=== PATIENT | female | born 1945 | race Caucasian/White ===

== ENCOUNTER → 2016-09-12 | Outpatient (CLI) | payer MEDICARE, BC ==
--- NOTE | 2016-09-13 19:09 | XA ---
Exam Date: 09/12/16 Patient's Age: 71 HEIGHT: 66.0 in WEIGHT: 169.0 lbs INDICATIONS: , Height Loss, Low Calcium Intake, Osteopenic, Post Menopausal FRACTURES: TREATMENTS: Zyrtec ASSESSMENT: The BMD measured at AP Spine L1-L4 is 0.973 g/cm2 with a T-score of -1.8. This patient is considered osteopenic according to World Health Organization (WHO) criteria. Bone density is between 10 and 25% below young normal. Fracture risk is moderate. Treatment is advised. The BMD measured at Femur Troch Mean is 0.786 g/cm2 with a T-score of -0.6 is normal. Fracture risk is low. RESULTS: Site Region Age Classification T-Score BMD AP Spine L1-L4 71.1 Osteopenia -1.8 0.973 g/cm2 Dual Femur Neck Mean 71.1 Osteopenia -1.7 0.802 g/cm2 Dual Femur Troch Mean 71.1 N/A -0.6 0.786 g/cm2 Dual Femur Total Mean 71.1 Osteopenia -1.2 0.853 g/cm2 World Health Organization - Criteria for post-menopausal, women: Normal: T-Score at or above -1 SD Osteopenia: T-Score between -1 and -2.5 SD Osteoporosis: T-Score at or below -2.5 SD RECOMMENDATION: Pharmacologic treatment recommendations & Initiate pharmacologic treatment: - In those with hip or vertebral (clinical or asymptomatic) fractures - In those with T -scores <-2.5 at the femoral neck, total hip, or lumbar spine by DXA - In postmenopausal women and men age 50 and older with low bone mass (T-score between -1.0 and -2.5, osteopenia) at the femoral neck, total hip, or lumbar spine by DXA and a 10-year hip fracture probability >3 % or a 10-year major osteoporosis-related fracture probability >20% based on the [place]-adapted WHO absolute fracture risk model (Fracture Risk Algorithm (FRAX); www. NOF.org and www.shef.ac.uk/FRAX) FOLLOW UP: People with diagnosed cases of osteoporosis or at high risk for fracture should have regular bone mineral density tests. For patients eligible for Medicare, routine testing is allowed once every 2 years. The testing frequency can be increased to 1 year for patients who have rapidly progressing disease, those who are reviewing or discontinuing medial therapy to restore bone mass, or have additional risk factors. People with diagnosed cases of osteoporosis or osteopenia should be regularly tested for bone mineral density. For patient eligible for Medicare, routine testing is allowed once every 2 years. The testing frequency can be increased to 1 year for patients who have rapidly progressing disease, or for those who are receiving medial therapy to restore bone mass. [facility] -- MACIEJ Carey [phone] - FAX: [phone] AVTAR
--- NOTE | 2016-09-19 10:50 | MY ---
EXAMINATION: Bilateral digital mammography utilizing CAD. HISTORY: Screening exam. Comparison is made to previous studies dated 02/18/2015. FINDINGS: Bilateral heterogeneously dense breast tissue. No suspicious calcifications, masses or a rchitectural distortions. No pathologic appearing lymph nodes, no abnormal skin thickening or nipp le inversion. CAD highlighted regions appear normal at this time. IMPRESSION: BI-RADS category I - negative mammogram. Continued screening according to ACR-ACS gu idelines suggested. THE FALSE-NEGATIVE RATE OF MAMMOGRAM IS APPROXIMATELY 10%. MANAGEMENT OF A PALPABLE ABNORMALITY MUST BE BASED UPON CLINICAL GROUNDS. SENSITIVITY FOR DETECTION OF ABNORMALITIES IN DENSE BREASTS IS LOW. NOTE: A letter will be sent to the patient regarding findings. [facility] -- MACIEJ Carey [phone] - FAX [phone]
== END ==
LOC: MW.MAM 12:45
PROVIDERS: ATTEND Obstetrics & Gynecology
DX: Z12.31 Encounter for screening mammogram for malignant neoplasm of breast (principal); M85.80 Other specified disorders of bone density and structure, unspecified site; Z13.820 Encounter for screening for osteoporosis; M85.852 Other specified disorders of bone density and structure, left thigh; M85.851 Other specified disorders of bone density and structure, right thigh
CPT/HCPCS: 77080; 99204; G0202

== ENCOUNTER → 2016-09-13 | Outpatient (CLI) | payer MEDICARE, BC ==
--- NOTE | 2016-09-13 08:06 | PCM.PRNOTE ---
- Free Text/Narrative Note: Lexiscan Indication chest pain cLBBB Patient was supervised today during infusion portion of the stress test. The patient received Regadenoson 0.4 mg IV and nuclear agent using standard protocol. Sestamibi Tm99 25 Mci was gievn afterwards Baseline blood pressure is 134/76 with a heart rate 77 EKG SR cLBBB with ST abnormalities Vital signs at injection: Peak blood pressure 135/78 with a heart rate of 104 Vital signs at 4 minutes post injection: Peak blood pressure 134/63 with a heart rate of 91 EKG SR cLBBB without further ST changes Patient complains of headache spontaneously resolved Adverse effects from Rivka scan none Test done due to end of protocol Impression 1. electrocardiographically nondiagnostic for ischemia due to chemical protocol 2. nuclear imaging pending
--- NOTE | 2016-09-17 10:25 | NM ---
EXAMINATION: Nuclear medicine myocardial perfusion study HISTORY: Abnormal EKG. PROCEDURE: Following intravenous administration of 0.4 mg Lexiscan and 27.4 mCi of technetium 99m sestamibi, stress SPECT images including gating imaging was performed. FINDINGS: Stress myocardial SPECT images demonstrates moderately decreased uptake along the inferior wall most prominent at the base. There is also mildly decreased perfusion along the anteroseptal wall extendi ng from the apex to the midportion. Review of gated images demonstrates normal wall motion, contractility and wall thickening. The left ventricular ejection fraction is 59 %. The left ventricular chamber size is normal. IMPRESSION: 1. Areas of decreased perfusion along the inferior wall and less so along the anteroseptal wall. Cor relate with rest imaging. 2. Normal ventricular chamber size and function with ejection fraction of 59%.
== END ==
LOC: MW.NM 07:19
PROVIDERS: ATTEND Internal Medicine
DX: R94.31 Abnormal electrocardiogram [ECG] [EKG] (principal); R07.9 Chest pain, unspecified; I44.7 Left bundle-branch block, unspecified
CPT/HCPCS: 78451; 93017; A9500; J2785

== ENCOUNTER → 2016-09-24 | Outpatient (CLI) | payer MEDICARE, BC ==
--- NOTE | 2016-09-27 15:45 | ECHO ---
The echocardiogram report can be seen in this patient's EMR in the Reports section. AVTAR
== END | disposition home or self-care (01) ==
LOC: MW.US 12:37
PROVIDERS: ATTEND Internal Medicine
DX: I20.8 Other forms of angina pectoris (principal); I51.9 Heart disease, unspecified; I34.0 Nonrheumatic mitral (valve) insufficiency
CPT/HCPCS: 93306

== ENCOUNTER → 2016-09-25 | Outpatient (CLI) | payer MEDICARE, BC ==
[2016-09-25 16:24] LABS: CHLORIDE,CL 106 mmol/L (98-110); SODIUM,NA 141 mmol/L (136-146)
--- NOTE | 2016-10-16 18:33 | NM ---
EXAM DATE: 09/25/16 PATIENT'S AGE: 71 REPORT ADDENDUM ADDENDUM: Additional images obtained at rest following the administration of 26.9 mCi of technetium 99m labeled sestamibi. FINDINGS/IMPRESSION: The defect noted along the inferior wall is reversible and consistent with myocardial ischemia. Ejection fraction at rest is 62%. TID is 1.18. Addendum Dictated by: Micah Martin MD <Electronically signed by Micah Martin MD in OV> 09/25/16 1609 1607 06 EXAMINATION: Nuclear medicine myocardial perfusion study HISTORY: Abnormal EKG. PROCEDURE: Following intravenous administration of 0.4 mg Lexiscan and 27.4 mCi of technetium 99m sestamibi, stress SPECT images including gating imaging was performed. FINDINGS: Stress myocardial SPECT images demonstrates moderately decreased uptake along the inferior wall most prominent at the base. There is also mildly decreased perfusion along the anteroseptal wall extending from the apex to the midportion. Review of gated images demonstrates normal wall motion, contractility and wall thickening. The left ventricular ejection fraction is 59 %. The left ventricular chamber size is normal. IMPRESSION: 1. Areas of decreased perfusion along the inferior wall and less so along the anteroseptal wall. Correlate with rest imaging. 2. Normal ventricular chamber size and function with ejection fraction of 59%. Dictated by: Micah Martin MD <Electronically signed by Micah Martin MD in OV> 09/17/16 at 1023 , 1019 , 1019 Doc Number: [id number] Copies To: Zenon Carlson DO; PCP,None~ MTDD
== END ==
LOC: MW.NM 11:48
PROVIDERS: ATTEND Internal Medicine
DX: I20.8 Other forms of angina pectoris (principal); I10 Essential (primary) hypertension; R07.9 Chest pain, unspecified
CPT/HCPCS: 36415; 78451; 80048; 85025; 85610; A9500

== ENCOUNTER 2016-10-20 08:10 | Observation (INO) | payer MEDICARE, BC ==
[2016-10-20] MEDS ORDERED: fentaNYL 100 MCG/2 ML SDV IVPUSH ONE (08:14)
[2016-10-20] MEDS ORDERED: Sodium Chloride 0.9% 2.5 ML Syringe FLUSH PRN ×2 (08:14→10:01)
[2016-10-20] MEDS ORDERED: Sodium Chloride 0.9% 10 ML Syringe FLUSH PRN ×2 (08:14→10:01)
[2016-10-20] MEDS ORDERED: Aspirin 81 MG Tab.Chew PO ONE ×2 (08:14→08:17)
[2016-10-20] MEDS ORDERED: Ondansetron 4 MG/2 ML SDV IVPUSH ONE (08:14)
[2016-10-20] MEDS ORDERED: Sodium Chloride 0.9% 1,000 ML IV SCH (08:15)
--- NOTE | 2016-10-20 08:21 | EDM.PDOC ---
ED HPI GENERAL MEDICAL PROBLEM - General Stated Complaint: PT HAS PAIN Time Seen by Provider: 10/20/16 08:13 - History of Present Illness INITIAL COMMENTS - FREE TEXT/NARRATIVE: HISTORY AND PHYSICAL: History of present illness: Patient 71-year-old white female history of coronary artery disease who is today status post coronary artery stent who presents with concern of right- sided chest pain described as heaviness she equivocates regarding shortness of breath has been no palpitations nausea vomiting or diaphoresis Review of systems: As per history of present illness and below otherwise all systems reviewed and negative. Past medical history: As per history of present illness and as reviewed below otherwise noncontributory. Surgical history: As per history of present illness and as reviewed below otherwise noncontributory. Social history: No reported history of drug or alcohol abuse. Family history: As per history of present illness and as reviewed below otherwise noncontributory. Physical exam: HEENT: Atraumatic, normocephalic, pupils reactive, negative for conjunctival pallor or scleral icterus, mucous membranes moist, throat clear, neck supple, nontender, trachea midline. Lungs: Clear to auscultation, breath sounds equal bilaterally, chest nontender. Heart: S1S2, regular, negative for clicks, rubs, or JVD. Abdomen: Soft, nondistended, nontender. Negative for masses or hepatosplenomegaly. Negative for costovertebral tenderness. Pelvis: Stable nontender. Genitourinary: Deferred. Rectal: Deferred. Extremities: Atraumatic, negative for cords or calf pain. Neurovascular unremarkable. Neuro: Awake, alert, oriented. Cranial nerves II through XII unremarkable. Cerebellum unremarkable. Motor and sensory unremarkable throughout. Exam nonfocal. Diagnostics: CBC CMP PT/INR troponin chest x-ray EKG Therapeutics: IV O2 monitor aspirin nitroglycerin fentanyl Impression: #1 right-sided chest pain #2 history of coronary artery disease with recent stent placement Definitive disposition and diagnosis as appropriate pending reevaluation and review of above. - Related Data Allergies Allergy/AdvReac Type Severity Reaction Status Date / Time amoxicillin [From Augmentin] Allergy Vomiting Verified 10/20/16 08:59 clavulanic acid Allergy Vomiting Verified 10/20/16 08:59 [From Augmentin] codeine Allergy Itching Verified 10/20/16 08:59 Sulfa (Sulfonamide Allergy Palpitation Verified 10/20/16 08:59 Antibiotics) s ED ROS GENERAL - Review of Systems Review Of Systems: ROS reveals no pertinent complaints other than HPI. ED EXAM, GENERAL - Physical Exam Exam: See Below (See dictation) Course - Vital Signs Last Recorded V/S: Last Vital Signs Temp 36.4 C 10/20/16 08:27 Pulse 67 10/20/16 08:51 Resp 17 10/20/16 08:51 BP 136/82 10/20/16 08:53 Pulse Ox 95 10/20/16 08:51 - Orders/Labs/Meds Orders: Active Orders 24 hr Category Date Time Status Cardiac Monitoring [RC] . DIRECTED Care 10/20/16 08:14 Active EKG Documentation Completion [RC] STAT Care 10/20/16 08:14 Active Oxygen Therapy, ED [RC] ASDIRECTED Care 10/20/16 08:14 Active Pulse Oximetry [RC] ASDIRECTED Care 10/20/16 08:14 Active Chest 1V Frontal [CR] Stat Exams 10/20/16 08:14 Taken Sodium Chloride 0.9% [Normal Saline] 1,000 ml Med 10/20/16 08:15 Active IV STAT Sodium Chloride 0.9% [Saline Flush] Med 10/20/16 08:14 Active 10 ml FLUSH ASDIRECTED PRN Sodium Chloride 0.9% [Saline Flush] Med 10/20/16 08:14 Active 2.5 ml FLUSH ASDIRECTED PRN Saline Lock Insert [OM.PC] Stat Oth 10/20/16 08:14 Ordered Medication Orders Sodium Chloride (Normal Saline) 1,000 mls @ 125 mls/hr IV STAT URIEL Last Admin: 10/20/16 08:39 Dose: 125 mls/hr Sodium Chloride (Saline Flush) 10 ml FLUSH ASDIRECTED PRN PRN Reason: Keep Vein Open Sodium Chloride (Saline Flush) 2.5 ml FLUSH ASDIRECTED PRN PRN Reason: Keep Vein Open Labs: Laboratory Tests 10/20/16 10/20/16 10/20/16 Range/Units 08:20 08:20 08:20 WBC 5.54 (4.0-11.0) K/uL RBC 4.59 (4.30-5.90) M/uL Hgb 13.8 (12.0-16.0) g/dL Hct 40.6 (36.0-46.0) % MCV 88.5 (80.0-98.0) fL MCH 30.1 (27.0-32.0) pg MCHC 34.0 (31.0-37.0) g/dL RDW Std Deviation 41.6 (28.0-62.0) fl RDW Coeff of Frankie 13 (11.0-15.0) % Plt Count 212 (150-400) K/uL MPV 8.90 (7.40-12.00) fL Add Manual Diff YES Neutrophils % (Manual) 57 (48.0-80.0) % Band Neutrophils % 2 % Lymphocytes % (Manual) 33 (16.0-40.0) % Monocytes % (Manual) 4 (0.0-15.0) % Eosinophils % (Manual) 3 (0.0-7.0) % Basophils % (Manual) 1 (0.0-1.5) % Nucleated RBC % 0.0 /100WBC Absolute Seg Neuts 3.2 Band Neutrophils # 0.1 Lymphocytes # (Manual) 1.8 Monocytes # (Manual) 0.2 Eosinophils # (Manual) 0.2 Basophils # (Manual) 0 Nucleated RBCs # 0 K/uL INR 0.98 (0.86-1.11) Sodium 139 (136-146) mmol/L Potassium 3.6 (3.5-5.1) mmol/L Chloride 107 (98-110) mmol/L Carbon Dioxide 21 (21-31) mmol/L BUN 14 (6.0-23.0) mg/dL Creatinine 0.8 (0.6-1.5) mg/dL Est Cr Clr Drug Dosing TNP Estimated GFR (MDRD) > 60.0 ml/min Glucose 101 (60-110) mg/dL Calcium 9.1 (8.8-10.8) mg/dL Total Bilirubin 0.4 (0.1-1.5) mg/dL AST 17 (5-40) IU/L ALT 16 (8-54) IU/L Alkaline Phosphatase 83 (40-150) Troponin I (0.0-0.29) NG/ML Total Protein 7.5 (6.0-8.0) g/dL Albumin 4.6 (3.4-4.8) g/dL Globulin 2.9 (2.0-3.5) g/dL Albumin/Globulin Ratio 1.6 (1.3-2.8) 10/20/16 Range/Units 08:20 WBC (4.0-11.0) K/uL RBC (4.30-5.90) M/uL Hgb (12.0-16.0) g/dL Hct (36.0-46.0) % MCV (80.0-98.0) fL MCH (27.0-32.0) pg MCHC (31.0-37.0) g/dL RDW Std Deviation (28.0-62.0) fl RDW Coeff of Frankie (11.0-15.0) % Plt Count (150-400) K/uL MPV (7.40-12.00) fL Add Manual Diff Neutrophils % (Manual) (48.0-80.0) % Band Neutrophils % % Lymphocytes % (Manual) (16.0-40.0) % Monocytes % (Manual) (0.0-15.0) % Eosinophils % (Manual) (0.0-7.0) % Basophils % (Manual) (0.0-1.5) % Nucleated RBC % /100WBC Absolute Seg Neuts Band Neutrophils # Lymphocytes # (Manual) Monocytes # (Manual) Eosinophils # (Manual) Basophils # (Manual) Nucleated RBCs # K/uL INR (0.86-1.11) Sodium (136-146) mmol/L Potassium (3.5-5.1) mmol/L Chloride (98-110) mmol/L Carbon Dioxide (21-31) mmol/L BUN (6.0-23.0) mg/dL Creatinine (0.6-1.5) mg/dL Est Cr Clr Drug Dosing Estimated GFR (MDRD) ml/min Glucose (60-110) mg/dL Calcium (8.8-10.8) mg/dL Total Bilirubin (0.1-1.5) mg/dL AST (5-40) IU/L ALT (8-54) IU/L Alkaline Phosphatase (40-150) Troponin I < 0.10 (0.0-0.29) NG/ML Total Protein (6.0-8.0) g/dL Albumin (3.4-4.8) g/dL Globulin (2.0-3.5) g/dL Albumin/Globulin Ratio (1.3-2.8) Meds: Medications Generic Name Dose Route Start Last Admin Trade Name Freq PRN Reason Stop Dose Admin Sodium Chloride 1,000 mls @ 125 mls/hr 10/20/16 08:15 10/20/16 08:39 Normal Saline IV 125 mls/hr STAT URIEL Administration Sodium Chloride 10 ml 10/20/16 08:14 Saline Flush FLUSH ASDIRECTED PRN Keep Vein Open Sodium Chloride 2.5 ml 10/20/16 08:14 Saline Flush FLUSH ASDIRECTED PRN Keep Vein Open Discontinued Medications Generic Name Dose Route Start Last Admin Trade Name Freq PRN Reason Stop Dose Admin Aspirin 324 mg 10/20/16 08:14 10/20/16 08:52 Aspirin PO 10/20/16 08:15 Not Given ONETIME ONE Aspirin 243 mg 10/20/16 08:17 10/20/16 08:17 Aspirin PO 10/20/16 08:18 243 mg ONETIME ONE Administration Fentanyl 50 mcg 10/20/16 08:14 10/20/16 08:42 Sublimaze IVPUSH 10/20/16 08:15 50 mcg ONETIME ONE Administration Nitroglycerin 0.4 mg 10/20/16 08:14 10/20/16 08:53 Nitrostat SL 10/20/16 08:25 0.4 mg Q5M PRN Administration Chest Pain Ondansetron HCl 4 mg 10/20/16 08:14 10/20/16 08:40 Zofran IVPUSH 10/20/16 08:15 4 mg ONETIME ONE Administration Departure - Departure Time of Disposition: 09:28 Disposition: Refer to Observation Condition: good Clinical Impression: Chest pain - Discharge Information - My Orders Last 24 Hours: My Active Orders 10/20/16 08:14 Cardiac Monitoring [RC] . DIRECTED EKG Documentation Completion [RC] STAT Oxygen Therapy, ED [RC] ASDIRECTED Pulse Oximetry [RC] ASDIRECTED Chest 1V Frontal [CR] Stat Sodium Chloride 0.9% [Saline Flush] 10 ml FLUSH ASDIRECTED PRN Sodium Chloride 0.9% [Saline Flush] 2.5 ml FLUSH ASDIRECTED PRN Saline Lock Insert [OM.PC] Stat 10/20/16 08:15 Sodium Chloride 0.9% [Normal Saline] 1,000 ml IV STAT - Assessment/Plan Last 24 Hours: My Active Orders 10/20/16 08:14 Cardiac Monitoring [RC] . DIRECTED EKG Documentation Completion [RC] STAT Oxygen Therapy, ED [RC] ASDIRECTED Pulse Oximetry [RC] ASDIRECTED Chest 1V Frontal [CR] Stat Sodium Chloride 0.9% [Saline Flush] 10 ml FLUSH ASDIRECTED PRN Sodium Chloride 0.9% [Saline Flush] 2.5 ml FLUSH ASDIRECTED PRN Saline Lock Insert [OM.PC] Stat 10/20/16 08:15 Sodium Chloride 0.9% [Normal Saline] 1,000 ml IV STAT
[2016-10-20] MEDS: Nitroglycerin 0.4 MG Tab.SL SL PRN ×7 (08:35→21:58)
[2016-10-20 08:50] LABS: CHLORIDE,CL 107 mmol/L (98-110); SODIUM,NA 139 mmol/L (136-146)
[2016-10-20] MEDS ORDERED: Temazepam 15 MG Cap PO PRN (10:01)
[2016-10-20] MEDS ORDERED: Acetaminophen 325 MG Tab PO PRN (10:01)
--- NOTE | 2016-10-20 11:19 | PCM.HP ---
H&P History of Present Illness - General Date of Service: 10/20/16 Admit Problem/Dx: Admission Diagnosis/Problem Admission Diagnosis/Problem Chest pain Source of Information: Patient, Family History Limitations: Reports: No Limitations - History of Present Illness Initial Comments - Free Text/Narative: The patient is a 71-year-old lady who is presented to the emergency department a chief complaint of right-sided chest pain along with right arm pain. The patient does have a significant history of coronary artery disease and in fact received coronary artery stenting 2 days ago via right radial approach. The patient says that she has been developing pain at the entry site and says that the pain has continued up into her arm and into her chest. Patient says that she has a lump in her right elbow. The patient has had no specific aggravating or relieving factors. She is currently taking Plavix for anticoagulation. She has been evaluated by cardiology here locally. Patient was also noted to have an abnormal stress test. He has been in her usual state of health up at the present time. She's had no specific aggravating or relieving factors although her arm hurts upon movement. She's not short of breath. No diaphoresis. No dizziness or lightheadedness and no nausea or vomiting. Onset of Symptoms: Reports: Gradual Duration of Symptoms: Reports: Hour(s):, Getting Worse Location: Reports: Chest, Lower Extremity, Right Quality: Reports: Stabbing, Throbbing Improves with: Reports: Rest Worsens with: Reports: Movement Associated Symptoms: Reports: Chest Pain, Other (right radial approach coronary artery stenting 2 days ago) Right Arm Pain Score (Numeric/FACES): 2 Left Chest Pain Score (Numeric/FACES): 6 - Related Data Allergies/Adverse Reactions: Allergies Allergy/AdvReac Type Severity Reaction Status Date / Time amoxicillin [From Augmentin] Allergy Vomiting Verified 10/20/16 08:59 clavulanic acid Allergy Vomiting Verified 10/20/16 08:59 [From Augmentin] codeine Allergy Itching Verified 10/20/16 08:59 Sulfa (Sulfonamide Allergy Palpitation Verified 10/20/16 08:59 Antibiotics) s Home Medications: Home Meds Aspirin [Halfprin] 81 mg PO BRK 10/20/16 [History] Cetirizine [ZyrTEC] 10 mg PO DAILY 10/20/16 [History] Clopidogrel [Plavix] 75 mg PO DAILY 10/20/16 [History] Isosorbide Mononitrate [Imdur] 30 mg PO DAILY 10/20/16 [History] Ketotifen Fumarate [Alaway] 1 drop OP ASDIRECTED PRN 10/20/16 [History] Metoprolol Succinate 25 mg PO DAILY 10/20/16 [History] Nitroglycerin 0.4 mg SL Q5M PRN 10/20/16 [History] Rosuvastatin [Crestor] 10 mg PO BEDTIME 10/20/16 [History] Past Medical History HEENT History: Reports: None Cardiovascular History: Reports: Angina, CAD, Hypertension, Stents (2 days ago) Respiratory History: Reports: None Gastrointestinal History: Reports: None Genitourinary History: Reports: None Musculoskeletal History: Reports: None Neurological History: Reports: None Psychiatric History: Reports: None Endocrine/Metabolic History: Reports: None Hematologic History: Reports: None Immunologic History: Reports: None Oncologic (Cancer) History: Reports: None Dermatologic History: Reports: None - Past Surgical History HEENT Surgical History: Reports: Adenoidectomy, Tonsillectomy Cardiovascular Surgical History: Reports: Other (See Below) (stenting 2 days ago ) Other Cardiovascular Surgeries/Procedures: Bilateral ablations in legs Female Surgical History: Reports: Tubal Ligation Social & Family History - Family History Family Medical History: Noncontributory - Tobacco Use Smoking Status *Q: Never Smoker Second Hand Smoke Exposure: No - Caffeine Use Caffeine Use: Reports: Coffee, Soda, Tea Caffeine Use Comment: 2 cups coffee and 6 cups tea - Recreational Drug Use Recreational Drug Use: No H&P Review of Systems - Review of Systems: Review Of Systems: See Below General: Reports: Weakness HEENT: Reports: No Symptoms Pulmonary: Reports: No Symptoms Cardiovascular: Reports: Chest Pain Gastrointestinal: Reports: No Symptoms Genitourinary: Reports: No Symptoms Musculoskeletal: Reports: Arm Pain (right arm) Skin: Reports: No Symptoms Psychiatric: Reports: No Symptoms Neurological: Reports: No Symptoms Hematologic/Lymphatic: Reports: No Symptoms Immunologic: Reports: No Symptoms Exam - Exam Exam: See Below - Vital Signs Vital Signs: Last Vital Signs Temp 36.4 C 10/20/16 10:00 Pulse 58 L 10/20/16 10:00 Resp 16 10/20/16 10:00 BP 137/87 10/20/16 10:00 Pulse Ox 96 10/20/16 10:00 Weight: 77.1 kg - Exam Quality Assessment: No: Supplemental Oxygen General: Alert, Oriented, Cooperative. No: Mild Distress HEENT: Conjunctiva Clear, EACs Clear, Mucosa Moist & [place], Nares Patent, Normal Nasal Septum Neck: Supple, Trachea Midline Lungs: Clear to Auscultation, Normal Respiratory Effort Cardiovascular: Regular Rate, Regular Rhythm, Normal S1, Normal S2 Abdomen: Normal Bowel Sounds, Soft. No: Peritoneal Signs, Distention, Guarding , Tenderness Back Exam: Normal Inspection Extremities: Other (right antecubital fossa pulsatile mass with right radial access clean without infection) Skin: Warm, Dry, Intact Neurological: Cranial Nerves Intact Neuro Extensive - Mental Status: Alert, Oriented x3 Psychiatric: Alert, Normal Affect - Patient Data Result Diagrams: 10/20/16 08:20 10/20/16 08:20 *Q Meaningful Use (ADM) - VTE *Q VTE Criteria *Q: VTE Pharmacological Contraindications *Q: High INR Value - VTE Risk Assess *Q Each Risk Factor Represents 2 Points: Age 60 - 74 Years Total Score 2 Point Risk Factors: 2 - Stroke *Q Stroke Criteria *Q: - AMI *Q AMI Criteria *Q: - Problem List (1) Pseudoaneurysm of brachial artery SNOMED Code(s): 442990664 ICD Code: I72.1 - ANEURYSM OF ARTERY OF UPPER EXTREMITY Status: Acute Priority: High Current Visit: Yes Problem Details: ultrasound arterial right arm ordered (2) Coronary artery disease SNOMED Code(s): 15062105 ICD Code: I25.10 - ATHSCL HEART DISEASE OF [place] CORONARY ARTERY W/O ANG PCTRS Status: Chronic Priority: High Current Visit: Yes Qualifiers: Coronary Disease-Associated Artery/Lesion type: [place] artery [place] vs. transplanted heart: [place] heart Associated angina: without angina Qualified Code(s): I25.10 - Atherosclerotic heart disease of [place] coronary artery without angina pectoris (3) Status post angioplasty with stent SNOMED Code(s): 926431896, 667765585 ICD Code: Z95.9 - PRESENCE OF CARDIAC AND VASCULAR IMPLANT AND GRAFT, UNSP Status: Acute Priority: High Current Visit: Yes (4) Chest pain SNOMED Code(s): 24195409 ICD Code: R07.9 - CHEST PAIN, UNSPECIFIED Status: Chronic Priority: High Current Visit: Yes Qualifiers: Chest pain type: other chest pain Qualified Code(s): R07.89 - Other chest pain; R07.8 - Other chest pain Problem List Initiated/Reviewed/Updated: Yes Orders Last 24hrs: Active Orders 24 hr Category Date Time Status Patient Status [ADT] Routine ADT 10/20/16 09:59 Active Ambulate [RC] PER UNIT ROUTINE Care 10/20/16 10:01 Active EKG Documentation Completion [RC] STAT Care 10/20/16 09:19 Active Oxygen Therapy [RC] PRN Care 10/20/16 09:59 Active Up ad [place] [RC] ASDIRECTED Care 10/20/16 09:59 Active VTE/DVT Education [RC] PER UNIT ROUTINE Care 10/20/16 09:59 Active Vital Signs [RC] Q4H Care 10/20/16 09:59 Active 2 Gram Sodium Diet [DIET] Diet 10/20/16 Lunch Active Venous Doppler Upr Ext Rt [US] Routine Exams 10/20/16 10:17 Ordered Acetaminophen [Tylenol] Med 10/20/16 10:01 Active 650 mg PO Q4H PRN Sodium Chloride 0.9% [Saline Flush] Med 10/20/16 10:01 Active 10 ml FLUSH ASDIRECTED PRN Sodium Chloride 0.9% [Saline Flush] Med 10/20/16 10:01 Active 2.5 ml FLUSH ASDIRECTED PRN Temazepam [Restoril] Med 10/20/16 10:01 Active 15 mg PO BEDTIME PRN Saline Lock Insert [OM.PC] Routine Oth 10/20/16 10:01 Ordered VTE Pharmacological Contraindications [AST] Per Unit Oth 10/20/16 09:59 Ordered Routine Resuscitation Status Routine Resus Stat 10/20/16 09:59 Ordered Medication Orders Acetaminophen (Tylenol) 650 mg PO Q4H PRN PRN Reason: Pain (Mild 1-3)/fever Sodium Chloride (Normal Saline) 1,000 mls @ 125 mls/hr IV STAT URIEL Last Admin: 10/20/16 08:39 Dose: 125 mls/hr Sodium Chloride (Saline Flush) 10 ml FLUSH ASDIRECTED PRN PRN Reason: Keep Vein Open Sodium Chloride (Saline Flush) 2.5 ml FLUSH ASDIRECTED PRN PRN Reason: Keep Vein Open Temazepam (Restoril) 15 mg PO BEDTIME PRN PRN Reason: Sleep Assessment/Plan Comment:: Oct 20, 2016: The patient is a 71-year-old lady who is known to me from previous visits as well as her cardiac history. The patient started to have right-sided chest pain as well as right arm pain. She'll be admitted to observation for further testing as I suspect that she does have a pseudoaneurysm as well as thrombus in the right radial artery. This is expected occasionally from the procedure that she underwent. Literature also supports the use of compression if pseudoaneurysm is greater than 2 cm. I've ordered an ultrasound of her right arm arterial Doppler in order to ascertain this. I suspect that the patient's chest pain is likely due to this. She'll have further testing as well as telemetry and I believe that the patient will be appropriate for discharge in the morning. The patient will be kept on a heart healthy diet as tolerated. And she is to followup with cardiology and her primary care physician as scheduled. The patient will not be placed on Lovenox and she is currently taking Plavix for anticoagulation. Patient's treatment plan will be adjusted accordingly.
[2016-10-20] MEDS ORDERED: KETOTIFEN FUMARATE EYEBOTH PRN (16:11)
[2016-10-20] MEDS ORDERED: Rosuvastatin 10 MG Tab PO SCH (21:00)
[2016-10-20] MEDS ORDERED: Morphine 2 MG/ML Syringe IVPUSH PRN (21:56)
[2016-10-21 06:17] LABS: CHLORIDE,CL 110 mmol/L (98-110); SODIUM,NA 140 mmol/L (136-146)
[2016-10-21 08:58] VITALS: BP 130/59
[2016-10-21] MEDS ORDERED: Metoprolol Succinate 25 MG Tab.ER PO SCH (09:00)
[2016-10-21] MEDS ORDERED: Isosorbide Mononitrate 30 MG Tab.ER PO SCH (09:00)
[2016-10-21] MEDS ORDERED: Clopidogrel 75 MG Tab PO SCH (09:00)
[2016-10-21] MEDS ORDERED: Cetirizine 10 MG Tab PO SCH (09:00)
[2016-10-21] MEDS ORDERED: Rosuvastatin 10 MG Tab PO SCH (09:00)
[2016-10-21] MEDS ORDERED: Aspirin 81 MG Tab.EC PO SCH (09:15)
--- NOTE | 2016-10-21 09:33 | PCM.DCSUM1 ---
Discharge Summary - Hospital Course Free Text/Narrative:: the patient underwent coronary artery stenting 2 days ago. She was admitted secondary to atypical chest pain. Patient also been complaining of pain in her right arm along her wrist into her upper arm. HPI Initial Comments: the patient was admitted to observation secondary to the atypical chest pain. - Discharge Data Discharge Date: 10/21/16 Discharge Disposition: Home, Self-Care 01 Condition: Good - Discharge Diagnosis/Problem(s) (1) Coronary artery disease SNOMED Code(s): 21052930 ICD Code: I25.10 - ATHSCL HEART DISEASE OF [place] CORONARY ARTERY W/O ANG PCTRS Status: Chronic Priority: High Current Visit: Yes Qualifiers: Coronary Disease-Associated Artery/Lesion type: [place] artery [place] vs. transplanted heart: [place] heart Associated angina: without angina Qualified Code(s): I25.10 - Atherosclerotic heart disease of [place] coronary artery without angina pectoris (2) Pseudoaneurysm of brachial artery SNOMED Code(s): 474115706 ICD Code: I72.1 - ANEURYSM OF ARTERY OF UPPER EXTREMITY Status: Ruled-out Priority: High Current Visit: Yes Problem Details: ultrasound arterial right arm ordered (3) Status post angioplasty with stent SNOMED Code(s): 691794725, 395728060 ICD Code: Z95.9 - PRESENCE OF CARDIAC AND VASCULAR IMPLANT AND GRAFT, UNSP Status: Acute Priority: High Current Visit: Yes (4) Chest pain SNOMED Code(s): 96006094 ICD Code: R07.9 - CHEST PAIN, UNSPECIFIED Status: Chronic Priority: High Current Visit: Yes Qualifiers: Chest pain type: other chest pain Qualified Code(s): R07.89 - Other chest pain; R07.8 - Other chest pain - Patient Summary/Data Hospital Course: Oct 21, 2016: The patient is a 71-year-old lady who had presented to the emergency department on Oct 20, 2016 secondary to chest pain. The patient had coronary artery stenting completed 2 days ago. The patient was placed on clopidogrel and other medication specific for her coronary artery disease. The patient says that she had pain in the right side of her chest along her right arm as well. Patient also had increasing pain along the radial artery on the right side which was used as an access for coronary artery stenting. The patient was admitted to observation and telemetry. Her EKG was essentially unchanged. Patient also had a coronary artery stenting secondary to an abnormal stress test. 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 Serial troponins were completed which were negative and the patient had experienced an improvement. The patient had been tolerating diet. I've recommended to the patient that she followup with a phone call to her splitting machine operator helper to inform him of the weekend events. I've explained to the patient the importance of compliance with all of her medications especially the clopidogrel. The patient will be discharged home with a recommendation for heart healthy diet and activity as tolerated. Patient should also followup with her primary care physician as scheduled. The patient is discharged with stable vital signs with the above recommendations. - Patient Instructions Diet: Heart Healthy Diet Activity: As Tolerated - Discharge Plan Home Medications: Home Meds Aspirin [Halfprin] 81 mg PO BRK 10/20/16 [History] Cetirizine [ZyrTEC] 10 mg PO DAILY 10/20/16 [History] Clopidogrel [Plavix] 75 mg PO DAILY 10/20/16 [History] Isosorbide Mononitrate [Imdur] 30 mg PO DAILY 10/20/16 [History] Ketotifen Fumarate [Alaway] 1 drop OP ASDIRECTED PRN 10/20/16 [History] Metoprolol Succinate 25 mg PO DAILY 10/20/16 [History] Nitroglycerin 0.4 mg SL Q5M PRN 10/20/16 [History] Rosuvastatin [Crestor] 10 mg PO DAILY 10/20/16 [History] Forms: ED Department Discharge Referrals: PCP,None [Primary Care Provider] - - Discharge Summary/Plan Comment DC Time >30 min.: Yes - Patient Data Vitals - Most Recent: Last Vital Signs Temp 36.6 C 10/21/16 08:00 Pulse 61 10/21/16 08:57 Resp 18 10/21/16 04:00 BP 130/59 L 10/21/16 08:57 Pulse Ox 94 L 10/21/16 08:00 Weight - Most Recent: 77.1 kg I&O - Last 24 hours: Intake & Output 10/20/16 10/21/16 10/21/16 22:59 06:59 14:59 Intake Total 700 720 Output Total 1400 1780 Balance -700 -1060 Lab Results - Last 24 hrs: Laboratory Results - last 24 hr 10/20/16 10/21/16 10/21/16 Range/Units 14:55 05:42 05:42 WBC 5.09 (4.0-11.0) K/uL RBC 4.47 (4.30-5.90) M/uL Hgb 13.1 (12.0-16.0) g/dL Hct 39.7 (36.0-46.0) % MCV 88.8 (80.0-98.0) fL MCH 29.3 (27.0-32.0) pg MCHC 33.0 (31.0-37.0) g/dL RDW Std Deviation 41.9 (28.0-62.0) fl RDW Coeff of Frankie 13 (11.0-15.0) % Plt Count 205 (150-400) K/uL MPV 9.00 (7.40-12.00) fL Neut % (Auto) 47.3 L (48.0-80.0) % Lymph % (Auto) 36.0 (16.0-40.0) % [place] % (Auto) 12.2 (0.0-15.0) % Eos % (Auto) 3.3 (0.0-7.0) % Baso % (Auto) 1.2 (0.0-1.5) % Neut # (Auto) 2.4 (1.4-5.7) K/uL Lymph # (Auto) 1.8 (0.6-2.4) K/uL [place] # (Auto) 0.6 (0.0-0.8) K/uL Eos # (Auto) 0.2 (0.0-0.7) K/uL Baso # (Auto) 0.1 (0.0-0.1) K/uL Nucleated RBC % 0.0 /100WBC Nucleated RBCs # 0 K/uL Sodium 140 (136-146) mmol/L Potassium 4.1 (3.5-5.1) mmol/L Chloride 110 (98-110) mmol/L Carbon Dioxide 21 (21-31) mmol/L BUN 14 (6.0-23.0) mg/dL Creatinine 0.8 (0.6-1.5) mg/dL Est Cr Clr Drug Dosing 60.71 mL/min Estimated GFR (MDRD) > 60.0 ml/min Glucose 104 (60-110) mg/dL Calcium 8.8 (8.8-10.8) mg/dL Total Bilirubin 0.3 (0.1-1.5) mg/dL AST 15 (5-40) IU/L ALT 14 (8-54) IU/L Alkaline Phosphatase 74 (40-150) Troponin I < 0.10 (0.0-0.29) NG/ML Total Protein 6.6 (6.0-8.0) g/dL Albumin 4.0 (3.4-4.8) g/dL Globulin 2.6 (2.0-3.5) g/dL Albumin/Globulin Ratio 1.5 (1.3-2.8) Med Orders - Current: Current Medications Acetaminophen (Tylenol) 650 mg PO Q4H PRN PRN Reason: Pain (Mild 1-3)/fever Last Admin: 10/20/16 19:18 Dose: 650 mg Aspirin (Halfprin) 81 mg PO [facility] Cetirizine HCl (Zyrtec) 10 mg PO DAILY REPLACED BY [facility] Last Admin: 10/21/16 08:54 Dose: 10 mg Clopidogrel Bisulfate (Plavix) 75 mg PO DAILY REPLACED BY [facility] Last Admin: 10/21/16 08:54 Dose: 75 mg Isosorbide Mononitrate (Imdur) 30 mg PO DAILY REPLACED BY [facility] Last Admin: 10/21/16 08:54 Dose: 30 mg Metoprolol Succinate (Toprol Xl) 25 mg PO DAILY REPLACED BY [facility] Last Admin: 10/21/16 08:57 Dose: 25 mg Morphine Sulfate (Morphine) 2 mg IVPUSH Q4H PRN PRN Reason: Pain (severe 7-10) Nitroglycerin (Nitrostat) 0.4 mg SL Q5M PRN PRN Reason: Chest Pain Last Admin: 10/20/16 21:58 Dose: 0.4 mg Ketotifen Fumarate 1 (Drop) 1 each EYEBOTH ASDIRECTED PRN PRN Reason: eye irritation Rosuvastatin Calcium (Crestor) 10 mg PO DAILY REPLACED BY [facility] Last Admin: 10/21/16 08:58 Dose: Not Given Sodium Chloride (Saline Flush) 10 ml FLUSH ASDIRECTED PRN PRN Reason: Keep Vein Open Sodium Chloride (Saline Flush) 2.5 ml FLUSH ASDIRECTED PRN PRN Reason: Keep Vein Open Temazepam (Restoril) 15 mg PO BEDTIME PRN PRN Reason: Sleep Discontinued Medications Aspirin (Aspirin) 324 mg PO ONETIME ONE Stop: 10/20/16 08:15 Last Admin: 10/20/16 08:52 Dose: Not Given Aspirin (Aspirin) 243 mg PO ONETIME ONE Stop: 10/20/16 08:18 Last Admin: 10/20/16 08:17 Dose: 243 mg Fentanyl (Sublimaze) 50 mcg IVPUSH ONETIME ONE Stop: 10/20/16 08:15 Last Admin: 10/20/16 08:42 Dose: 50 mcg Sodium Chloride (Normal Saline) 1,000 mls @ 125 mls/hr IV STAT URIEL Last Admin: 10/20/16 08:39 Dose: 125 mls/hr Nitroglycerin (Nitrostat) 0.4 mg SL Q5M PRN PRN Reason: Chest Pain Stop: 10/20/16 08:25 Last Admin: 10/20/16 08:53 Dose: 0.4 mg Ondansetron HCl (Zofran) 4 mg IVPUSH ONETIME ONE Stop: 10/20/16 08:15 Last Admin: 10/20/16 08:40 Dose: 4 mg Sodium Chloride (Saline Flush) 10 ml FLUSH ASDIRECTED PRN PRN Reason: Keep Vein Open Sodium Chloride (Saline Flush) 2.5 ml FLUSH ASDIRECTED PRN PRN Reason: Keep Vein Open *Q Meaningful Use (DIS) - VTE *Q VTE Criteria *Q: VTE Pharmacological Contraindications *Q: High INR Value - Stroke *Q Stroke Criteria *Q: - AMI *Q AMI Criteria *Q:
--- NOTE | 2016-10-22 13:34 | CR ---
EXAM DATE: 10/20/16 PATIENT'S AGE: 71 Patient: LIO CAMPOS Facility: [place], [place] Site . Site : 1945 Study: XRay Chest [id number]/3/2017 8:40:21 AM Ordering Physician: Doctor Menjivar Final Report: INDICATION: pain/shortness of breath Single AP view Findings: The lungs are clear. Pulmonary vascularity, mediastinum and cardiac silhouette are within normal limits. No effusions and no pneumothorax. Osseous structures appear unremarkable. Impression: No evidence of acute cardiopulmonary disease. Dictated by: Sameer Agosto MD @ 10/20/2016 09:06:39 (Electronic Signature) Report Signed by Proxy. AVTAR
--- NOTE | 2016-10-22 14:28 | US ---
EXAM DATE: 10/20/16 PATIENT'S AGE: 71 Patient: LIO CAMPOS Facility: [place], [place] Site . Site : 1945 Study: US Extremity Arterial RIGHT [id number]/3/2017 12:27:30 PM Ordering Physician: Robyn Yarbrough Final Report: INDICATION: Cardiac catheterization from the antecubital approach with pain and swelling in the right antecubital region. Technique: Limited duplex arterial ultrasound right upper extremity with imaging obtained from the axillary artery to the level of the radial and ulnar arterial branches in the antecubital region. Findings: The axillary, brachial, radial, and ulnar arteries are patent. No pseudoaneurysm formation. No arterial occlusion. No sign for arterial dissection. Brisk arterial multiphasic waveforms are present. The soft tissues show no localized fluid collection. Some mild increased echogenicity of the surrounding tissues are present in the antecubital region. Impression: No sign for pseudoaneurysm or arterial occlusion. Mild diffuse edema or possible minimal diffuse subcutaneous hematoma formation in the antecubital region but no focal hematoma. Dictated by Salvador Darby MD @ Oct 20 2016 2:25PM (Electronic Signature) Report Signed by Proxy. AVTAR
== END 2016-10-21 11:20 | disposition home or self-care (01) ==
LOC: MW.ED 08:10 → MW.MS 09:29
PROVIDERS: ADMIT Internal Medicine; ATTEND Internal Medicine
DX: I25.10 Atherosclerotic heart disease of native coronary artery without angina pectoris (principal); I72.1 Aneurysm of artery of upper extremity; R07.89 Other chest pain; Z79.02 Long term (current) use of antithrombotics/antiplatelets; Z79.82 Long term (current) use of aspirin; Z79.899 Other long term (current) drug therapy; Z88.0 Allergy status to penicillin; Z88.2 Allergy status to sulfonamides; Z88.5 Allergy status to narcotic agent; Z95.9 Presence of cardiac and vascular implant and graft, unspecified; Z98.51 Tubal ligation status; Z90.89 Acquired absence of other organs; Z98.890 Other specified postprocedural states
CPT/HCPCS: 36415; 71010; 80053; 84484; 85025; 85610; 93005; 93931; 96361; 96374; 96375; 99285; A9270; J2405; J3010; J7040; G0378

== ENCOUNTER 2017-08-27 17:06 | Inpatient (IN) | payer MEDICARE, BC ==
[2017-08-27 18:17] LABS: CHLORIDE,CL 103 mmol/L (98-107); SODIUM,NA 138 mmol/L (136-145)
[2017-08-27] MEDS ORDERED: Ondansetron 4 MG/2 ML SDV IVPUSH PRN (19:12)
--- NOTE | 2017-08-27 19:23 | PCM.HP ---
H&P History of Present Illness - General Admit Problem/Dx: Admission Diagnosis/Problem Admission Diagnosis/Problem Heart block - History of Present Illness Initial Comments - Free Text/Narative: 72 yo female with pmh of CAD with stent last september to who present to Dr. Rodriguez's clinic. For past two weeks she reports fatigue, shortness of breath with exertion and left shoulder pressure. In clinic Dr. Rodriguez notice complete heart block on EKG and then referred for admission. - Related Data Allergies/Adverse Reactions: Allergies Allergy/AdvReac Type Severity Reaction Status Date / Time amoxicillin [From Augmentin] Allergy Vomiting Verified 10/20/16 08:59 clavulanic acid Allergy Vomiting Verified 10/20/16 08:59 [From Augmentin] codeine Allergy Itching Verified 10/20/16 08:59 Sulfa (Sulfonamide Allergy Palpitation Verified 10/20/16 08:59 Antibiotics) s Home Medications: Home Meds Aspirin [Halfprin] 81 mg PO BEDTIME 10/20/16 [History] Cetirizine [ZyrTEC] 10 mg PO DAILY 10/20/16 [History] Clopidogrel [Plavix] 75 mg PO DAILY 10/20/16 [History] Isosorbide Mononitrate [Imdur] 30 mg PO DAILY 10/20/16 [History] Ketotifen Fumarate [Alaway] 1 drop OP ASDIRECTED PRN 10/20/16 [History] Metoprolol Succinate 0.5 tab PO DAILY 10/20/16 [History] Nitroglycerin 0.4 mg SL Q5M PRN 10/20/16 [History] Rosuvastatin [Crestor] 20 mg PO BEDTIME 10/20/16 [History] Losartan [Cozaar] 2 tab PO DAILY 08/27/17 [History] Ubidecarenone [Co Q-10] 100 mg PO DAILY 08/27/17 [History] valACYclovir HCl [Valtrex] 1 tab PO TID PRN 08/27/17 [History] Past Medical History HEENT History: Reports: None Cardiovascular History: Reports: Angina, CAD, Hypertension, Stents Respiratory History: Reports: None Gastrointestinal History: Reports: None Genitourinary History: Reports: None Musculoskeletal History: Reports: None Neurological History: Reports: None Psychiatric History: Reports: None Endocrine/Metabolic History: Reports: None Hematologic History: Reports: None Immunologic History: Reports: None Oncologic (Cancer) History: Reports: None Dermatologic History: Reports: None - Infectious Disease History Infectious Disease History: Reports: Herpes - Past Surgical History HEENT Surgical History: Reports: Adenoidectomy, Tonsillectomy Cardiovascular Surgical History: Reports: Other (See Below) Other Cardiovascular Surgeries/Procedures: Bilateral ablations in legs Female Surgical History: Reports: Tubal Ligation Social & Family History - Family History Family Medical History: Noncontributory - Tobacco Use Smoking Status *Q: Never Smoker Second Hand Smoke Exposure: No - Caffeine Use Caffeine Use: Reports: Coffee Caffeine Use Comment: 2 cups coffee and 6 cups tea - Recreational Drug Use Recreational Drug Use: No H&P Review of Systems - Review of Systems: Review Of Systems: ROS reveals no pertinent complaints other than HPI. Exam - Vital Signs Vital Signs: Last Vital Signs Temp 36.6 C 08/27/17 17:19 Pulse Resp 112 H 08/27/17 19:00 BP 109/73 08/27/17 19:00 Pulse Ox 97 08/27/17 19:00 Weight: 83 kg - Exam General: Alert, Oriented HEENT: Mucosa Moist & [place] Neck: Supple, Trachea Midline. No: JVD Lungs: Clear to Auscultation, Normal Respiratory Effort Cardiovascular: Bradycardia GI/Abdominal Exam: Normal Bowel Sounds, Soft, Non-Tender Extremities: Non-Tender, No Pedal Edema Skin: Warm, Dry, Intact Neurological: Cranial Nerves Intact - Patient Data Lab Results Last 24 hrs: Laboratory Results - last 24 hr 08/27/17 08/27/17 Range/Units 17:30 17:30 WBC 7.69 (4.0-11.0) K/uL RBC 4.73 (4.30-5.90) M/uL Hgb 14.6 (12.0-16.0) g/dL Hct 42.4 (36.0-46.0) % MCV 89.6 (80.0-98.0) fL MCH 30.9 (27.0-32.0) pg MCHC 34.4 (31.0-37.0) g/dL RDW Std Deviation 43.3 (28.0-62.0) fl RDW Coeff of Frankie 13 (11.0-15.0) % Plt Count 237 (150-400) K/uL MPV 9.60 (7.40-12.00) fL Neut % (Auto) 52.1 (48.0-80.0) % Lymph % (Auto) 33.7 (16.0-40.0) % [place] % (Auto) 11.2 (0.0-15.0) % Eos % (Auto) 2.2 (0.0-7.0) % Baso % (Auto) 0.8 (0.0-1.5) % Neut # (Auto) 4.0 (1.4-5.7) K/uL Lymph # (Auto) 2.6 H (0.6-2.4) K/uL [place] # (Auto) 0.9 H (0.0-0.8) K/uL Eos # (Auto) 0.2 (0.0-0.7) K/uL Baso # (Auto) 0.1 (0.0-0.1) K/uL Nucleated RBC % 0.0 /100WBC Nucleated RBCs # 0 K/uL Sodium 138 (136-145) mmol/L Potassium 4.3 (3.5-5.1) mmol/L Chloride 103 (98-107) mmol/L Carbon Dioxide 24.0 (21.0-32.0) mmol/L BUN 20 H (7.0-18.0) mg/dL Creatinine 0.9 (0.6-1.0) mg/dL Est Cr Clr Drug Dosing 52.89 mL/min Estimated GFR (MDRD) > 60.0 ml/min Glucose 97 (74-106) mg/dL Calcium 9.2 (8.5-10.1) mg/dL Magnesium 1.9 (1.5-2.0) mg/dL Total Bilirubin 0.4 (0.2-1.0) mg/dL AST 19 (15-37) IU/L ALT 54 (14-63) IU/L Alkaline Phosphatase 73 (46-116) U/L Troponin I < 0.050 (0.000-0.056) ng/mL Total Protein 7.4 (6.4-8.2) g/dL Albumin 4.1 (3.4-5.0) g/dL Globulin 3.3 (2.0-3.5) g/dL Albumin/Globulin Ratio 1.2 L (1.3-2.8) Result Diagrams: 08/27/17 17:30 08/27/17 17:30 EKG INTERPRETATION Rhythm: Other (complete heart block) Rate (Beats/Min): 38 P-Wave: Present Problem List Initiated/Reviewed/Updated: Yes Orders Last 24hrs: Active Orders 24 hr Category Date Time Status Patient Status [ADT] Routine ADT 08/27/17 19:12 Ordered Oxygen Therapy [RC] PRN Care 08/27/17 19:12 Ordered Up ad Brooke [RC] ASDIRECTED Care 08/27/17 19:12 Ordered VTE/DVT Education [RC] PER UNIT ROUTINE Care 08/27/17 19:12 Ordered Vital Signs [RC] Q4H Care 08/27/17 19:12 Ordered Heart Healthy Diet [DIET] Diet 08/27/17 Dinner Active BASIC METABOLIC PANEL,BMP [CHEM] AM Lab 08/28/17 05:11 Ordered CBC WITH AUTO DIFF [HEME] AM Lab 08/28/17 05:11 Ordered TROPONIN I [CHEM] Q6H Lab 08/27/17 23:29 Ordered TROPONIN I [CHEM] Q6H Lab 08/28/17 05:29 Ordered Aspirin [Halfprin] Med 08/27/17 21:00 Ordered 81 mg PO BEDTIME Ondansetron [Zofran] Med 08/27/17 19:12 Ordered 4 mg IVPUSH Q4H PRN Rosuvastatin [Crestor] Med 08/27/17 21:00 Ordered 20 mg PO BEDTIME Sequential Compression Device [OM.PC] Per Unit Routine Oth 08/27/17 19:13 Ordered Resuscitation Status Routine Resus Stat 08/27/17 19:12 Ordered Assessment/Plan Comment:: 72 yo female admitted with complete heart block. Dr. Rodriguez recommending observing overnight on telemetry, trending cardiac enzymes and holding her metoprolol.
[2017-08-27] MEDS ORDERED: Aspirin 81 MG Tab.EC PO SCH (21:00)
[2017-08-27] MEDS ORDERED: Rosuvastatin 10 MG Tab PO SCH (21:00)
[2017-08-28 06:12] LABS: CHLORIDE,CL 107 mmol/L (98-107); SODIUM,NA 142 mmol/L (136-145)
[2017-08-28 10:04] VITALS: BP 143/55
--- NOTE | 2017-08-28 13:28 | PCM.DCSUM1 ---
Discharge Summary - Hospital Course Free Text/Narrative:: Admission diagnosis: #1. Complete heart block #2. Hypertension Discharge diagnosis: #1. Complete heart block #2. Hypertension 72-year-old female with a history of coronary artery disease with stenting along with hypertension, that was admitted with complete heart block by her packaging materials inspector, Dr. Dwyer. Patient was observed in the ICU and placed on telemetry. Telemetry showed that the patient had complete heart block with a heart rate of 35-40 bpm. The only symptoms that the patient had during admission was shortness of breath with activity. She did not have any chest pain, palpitations , nausea, vomiting, constipation, diarrhea, fever, dizziness or headache. CBC, troponin 3, magnesium and CMP were all unremarkable. Patient's metoprolol was held during admission secondary to her bradycardia. Her bradycardia did not improve despite holding the metoprolol. Dr. Dwyer did talk with Dr. Rose, packaging materials inspector, at [facility] in [place] who accepted the patient for transfer for placement of a pacemaker. Patient was agreeable to being transferred. Discharge plan: #1. Patient will be transferred to [facility] in [place] with Dr. Rose, packaging materials inspector, being the accepting physician. The patient will be a direct admit to the ICU. Patient was sent via [facility] ambulance. - Discharge Data Discharge Date: 08/28/17 Discharge Disposition: DC/Tfer to Acute Hospital 02 Condition: Good - Discharge Diagnosis/Problem(s) (1) Heart block AV complete SNOMED Code(s): 98847467 ICD Code: I44.2 - ATRIOVENTRICULAR BLOCK, COMPLETE Status: Acute - Patient Summary/Data Consults: Consultations 08/27/17 19:16 Consult to Physician [CONS] Routine - Patient Instructions Diet: Heart Healthy Diet Activity: As Tolerated - Discharge Plan Home Medications: Home Meds Aspirin [Halfprin] 81 mg PO BEDTIME 10/20/16 [History] Cetirizine [ZyrTEC] 10 mg PO DAILY 10/20/16 [History] Clopidogrel [Plavix] 75 mg PO DAILY 10/20/16 [History] Isosorbide Mononitrate [Imdur] 30 mg PO DAILY 10/20/16 [History] Ketotifen Fumarate [Alaway] 1 drop OP ASDIRECTED PRN 10/20/16 [History] Nitroglycerin 0.4 mg SL Q5M PRN 10/20/16 [History] Rosuvastatin [Crestor] 20 mg PO BEDTIME 10/20/16 [History] Losartan [Cozaar] 2 tab PO DAILY 08/27/17 [History] Ubidecarenone [Co Q-10] 100 mg PO DAILY 08/27/17 [History] valACYclovir HCl [Valtrex] 1 tab PO TID PRN 08/27/17 [History] Patient Handouts: Third-Degree Atrioventricular Block - Discharge Summary/Plan Comment DC Time >30 min.: No Discharge Summary/Plan Comment: Admission diagnosis: #1. Complete heart block #2. Hypertension Discharge diagnosis: #1. Complete heart block #2. Hypertension 72-year-old female with a history of coronary artery disease with stenting along with hypertension, that was admitted with complete heart block by her packaging materials inspector, Dr. Dwyer. Patient was observed in the ICU and placed on telemetry. Telemetry showed that the patient had complete heart block with a heart rate of 35-40 bpm. The only symptoms that the patient had during admission was shortness of breath with activity. She did not have any chest pain, palpitations , nausea, vomiting, constipation, diarrhea, fever, dizziness or headache. CBC, troponin 3, magnesium and CMP were all unremarkable. Patient's metoprolol was held during admission secondary to her bradycardia. Her bradycardia did not improve despite holding the metoprolol. Dr. Dwyer did talk with Dr. Rose, packaging materials inspector, at [facility] in [place] who accepted the patient for transfer for placement of a pacemaker. Patient was agreeable to being transferred. Discharge plan: #1. Patient will be transferred to [facility] in [place] with Dr. Rose, packaging materials inspector, being the accepting physician. The patient will be a direct admit to the ICU. Patient was sent via [facility] ambulance. - Patient Data Vitals - Most Recent: Last Vital Signs Temp 97.9 F 08/28/17 08:00 Pulse 43 L 08/28/17 10:00 Resp 15 08/28/17 10:00 BP 143/55 H 08/28/17 10:00 Pulse Ox 96 08/28/17 10:00 Weight - Most Recent: 182 lb 15.739 oz I&O - Last 24 hours: Intake & Output 08/27/17 08/28/17 08/28/17 22:59 06:59 14:59 Intake Total 800 600 Output Total 1400 1000 Balance -600 -400 Lab Results - Last 24 hrs: Laboratory Results - last 24 hr 08/27/17 08/27/17 08/27/17 Range/Units 17:30 17:30 23:25 WBC 7.69 (4.0-11.0) K/uL RBC 4.73 (4.30-5.90) M/uL Hgb 14.6 (12.0-16.0) g/dL Hct 42.4 (36.0-46.0) % MCV 89.6 (80.0-98.0) fL MCH 30.9 (27.0-32.0) pg MCHC 34.4 (31.0-37.0) g/dL RDW Std Deviation 43.3 (28.0-62.0) fl RDW Coeff of Frankie 13 (11.0-15.0) % Plt Count 237 (150-400) K/uL MPV 9.60 (7.40-12.00) fL Neut % (Auto) 52.1 (48.0-80.0) % Lymph % (Auto) 33.7 (16.0-40.0) % [place] % (Auto) 11.2 (0.0-15.0) % Eos % (Auto) 2.2 (0.0-7.0) % Baso % (Auto) 0.8 (0.0-1.5) % Neut # (Auto) 4.0 (1.4-5.7) K/uL Lymph # (Auto) 2.6 H (0.6-2.4) K/uL [place] # (Auto) 0.9 H (0.0-0.8) K/uL Eos # (Auto) 0.2 (0.0-0.7) K/uL Baso # (Auto) 0.1 (0.0-0.1) K/uL Nucleated RBC % 0.0 /100WBC Nucleated RBCs # 0 K/uL Sodium 138 (136-145) mmol/L Potassium 4.3 (3.5-5.1) mmol/L Chloride 103 (98-107) mmol/L Carbon Dioxide 24.0 (21.0-32.0) mmol/L BUN 20 H (7.0-18.0) mg/dL Creatinine 0.9 (0.6-1.0) mg/dL Est Cr Clr Drug Dosing 52.89 mL/min Estimated GFR (MDRD) > 60.0 ml/min Glucose 97 (74-106) mg/dL Calcium 9.2 (8.5-10.1) mg/dL Magnesium 1.9 (1.5-2.0) mg/dL Total Bilirubin 0.4 (0.2-1.0) mg/dL AST 19 (15-37) IU/L ALT 54 (14-63) IU/L Alkaline Phosphatase 73 (46-116) U/L Troponin I < 0.050 < 0.050 (0.000-0.056) ng/mL Total Protein 7.4 (6.4-8.2) g/dL Albumin 4.1 (3.4-5.0) g/dL Globulin 3.3 (2.0-3.5) g/dL Albumin/Globulin Ratio 1.2 L (1.3-2.8) 08/28/17 08/28/17 08/28/17 Range/Units 05:26 05:26 05:26 WBC 6.41 (4.0-11.0) K/uL RBC 4.44 (4.30-5.90) M/uL Hgb 13.6 (12.0-16.0) g/dL Hct 40.4 (36.0-46.0) % MCV 91.0 (80.0-98.0) fL MCH 30.6 (27.0-32.0) pg MCHC 33.7 (31.0-37.0) g/dL RDW Std Deviation 43.8 (28.0-62.0) fl RDW Coeff of Frankie 13 (11.0-15.0) % Plt Count 232 (150-400) K/uL MPV 9.50 (7.40-12.00) fL Neut % (Auto) 47.6 L (48.0-80.0) % Lymph % (Auto) 36.8 (16.0-40.0) % [place] % (Auto) 12.2 (0.0-15.0) % Eos % (Auto) 2.8 (0.0-7.0) % Baso % (Auto) 0.6 (0.0-1.5) % Neut # (Auto) 3.1 (1.4-5.7) K/uL Lymph # (Auto) 2.4 (0.6-2.4) K/uL [place] # (Auto) 0.8 (0.0-0.8) K/uL Eos # (Auto) 0.2 (0.0-0.7) K/uL Baso # (Auto) 0.0 (0.0-0.1) K/uL Nucleated RBC % 0.0 /100WBC Nucleated RBCs # 0 K/uL Sodium 142 (136-145) mmol/L Potassium 4.8 (3.5-5.1) mmol/L Chloride 107 (98-107) mmol/L Carbon Dioxide 24.9 (21.0-32.0) mmol/L BUN 17 (7.0-18.0) mg/dL Creatinine 0.8 (0.6-1.0) mg/dL Est Cr Clr Drug Dosing 59.51 mL/min Estimated GFR (MDRD) > 60.0 ml/min Glucose 94 (74-106) mg/dL Calcium 9.1 (8.5-10.1) mg/dL Magnesium (1.5-2.0) mg/dL Total Bilirubin (0.2-1.0) mg/dL AST (15-37) IU/L ALT (14-63) IU/L Alkaline Phosphatase (46-116) U/L Troponin I < 0.050 (0.000-0.056) ng/mL Total Protein (6.4-8.2) g/dL Albumin (3.4-5.0) g/dL Globulin (2.0-3.5) g/dL Albumin/Globulin Ratio (1.3-2.8) Med Orders - Current: Current Medications Discontinued Medications Aspirin (Halfprin) 81 mg PO BEDTIME [facility] Last Admin: 08/27/17 21:39 Dose: 81 mg Ondansetron HCl (Zofran) 4 mg IVPUSH Q4H PRN PRN Reason: Nausea Rosuvastatin Calcium (Crestor) 20 mg PO BEDTIME [facility] Last Admin: 08/27/17 21:39 Dose: 20 mg
== END 2017-08-28 10:15 | DRG 310 ==
LOC: MW.ICU 17:06
PROVIDERS: ADMIT Internal Medicine; ATTEND Internal Medicine
DX: I44.2 Atrioventricular block, complete (principal); I10 Essential (primary) hypertension; I25.10 Atherosclerotic heart disease of native coronary artery without angina pectoris; R00.1 Bradycardia, unspecified; B00.9 Herpesviral infection, unspecified; Z88.6 Allergy status to analgesic agent; Z88.1 Allergy status to other antibiotic agents; Z95.5 Presence of coronary angioplasty implant and graft; Z88.2 Allergy status to sulfonamides; Z79.02 Long term (current) use of antithrombotics/antiplatelets; Z79.82 Long term (current) use of aspirin; Z79.899 Other long term (current) drug therapy
CPT/HCPCS: 36415; 80048; 80053; 83735; 84484; 85025; A9270-GY